=== PATIENT | male | born 1995 | race Caucasian/White ===

== ENCOUNTER 2023-01-28 21:30 | Emergency (ER) | payer OTHER ==
[~2023-01-28] VITALS: Ht 188 cm; Wt 70.3 kg
[2023-01-28 21:50] VITALS: BP 143/91
[2023-01-28] MEDS ORDERED: TORADOL ONE (22:11)
[2023-01-28] MEDS ORDERED: TORADOL IM STA (22:11)
--- NOTE | 2023-01-28 22:18 | ER.PDOC ---
General Chief Complaint: Requesting Medical Care Stated Complaint: BACK PAIN Time seen by MD: 22:13 Source: patient Exam Limitations: no limitations History of Present Illness Initial Comments Left mid back pain since yesterday. Pain is worse with movement or deep inspiration. He denies injury. No radiation to extremities. No numbness or tin gling of extremities. No cough. Timing/Duration: yesterday Severity/Quality: moderate Method of Injury: bending, twisted Associated Symptoms: muscle spasms Past Medical History Medical History: no pertinent history Surgical History: no surgical history Family History Significant Family History: no pertinent family hx Social History Smoking: chew Alcohol Use: occassionally Drug Use: none Review of Systems Constitutional: no symptoms reported EENTM: no symptoms reported Respiratory: no symptoms reported Cardiovascular: no symptoms reported Gastrointestinal: no symptoms reported Musculoskeletal: see HPI All Other Systems: Reviewed and Negative Physical Exam General Appearance: No Apparent Distress, WD/WN HEENT: PERRL/EOMI, Normal ENT Inspection, TMs Normal, Pharynx Normal Neck: Non-Tender, Normal Alignment Cardiovascular/Respiratory: Regular Rate, Rhythm, No M/R/G, Normal Peripheral Pulses, No JVD, Normal Breath Sounds, No Respiratory Distress Gastrointestinal: Normal Bowel Sounds, No Organomegaly, No Pulsatile Mass, Non Tender, Soft Back: Normal Inspection 1 - tenderness Extremities: No Evidence of Injury, Normal Range of Motion, Non-Tender, No Pedal Edema, Pelvis Stable Neuro/Psych: Alert, finished goods stock clerk nml/symmetrical, mood/effect nml, No Motor/Sensory Deficits, Relexes nml Skin: Normal Color, Warm/Dry Results/Orders Results/Orders Orders - LUDWIG BAE MD Ketorolac Tromethamine (Toradol) (01/28/23 22:11) Ketorolac Tromethamine (Toradol) (01/28/23 22:11) Vital Signs Date Time Temp Pulse Resp B/P (MAP) Pulse Ox O2 Delivery O2 Flow Rate FiO2 01/28/23 21:50 98.4 101 18 01/28/23 21:50 98.4 101 18 98 01/28/23 21:50 98.4 101 18 143/91 (108) 98 Room Air* 0 21 Progress Progress Patient received Toradol with improvement in pain. ER DEPART Departure Time of Disposition: 22:16 Disposition: 01 HOME / SELF CARE / HOMELESS Impression: Primary Impression: Back pain Condition: Improved Referrals: PCP,UNKNOWN (PCP) PRIMARY CARE PROVIDER Additional Instructions: Diclofenac Flexeril Follow-up with your PCP in 2 to 3 days Return to ED if worsening or concerns Duration or Time Spent with Pa: 10 min Problem Qualifiers Primary Impression: Back pain Back pain location: thoracic back pain Chronicity: acute Back pain laterality: left Qualified Codes: M54.6 - Pain in thoracic spine LUDWIG BEA MD Jan 28, 2023 22:18
[2023-01-28 22:28] VITALS: BP 139/88
== END 2023-01-28 22:25 | disposition home or self-care (01) ==
LOC: ER 21:30
DX: M54.6 Pain in thoracic spine (principal)
CPT/HCPCS: 99283; 96372; J1885